=== PATIENT | male | born 1940 | race Caucasian/White ===

== ENCOUNTER → 2016-04-16 | Outpatient (CLI) | payer MEDICARE, OTHER ==
[~2016-04-16] MED LIST: ALBUTEROL 0.5ML INH; ALBUTEROL0.83 MG/ML INH; ALLERGY RELIEF10 M1 PO; AMLODIPINE BESYL5 MG PO; APRESOLINE PO; ASPIR-TRIN325 MG PO; ASPIRIN; ASPIRIN ENTERI325 M1 PO; ASPIRIN81 M2 PO; ATIVAN PO; ATIVAN0.5 M1 PO; AUGMENTIN PO; AVANDIA; BACTROBAN22 GM TOP; BAYER ASPIRIN325 M1 PO; CARVEDILOL25 MG PO; COATED ASPIRIN325 M1 PO; COREG; COREG PO; COREG12.5 MG PO; COZAAR; COZAAR100 MG PO; COZAAR25 MG PO; FUROSEMIDE40 MG PO; FUROSEMIDE80 MG PO; GLUCOPHAGE XR500 MG; HYDRALAZINE HCL25 MG PO; IMDUR-ER60 M1 PO; IMDUR-ER60 MG DOB; K-DUR20 ME2 PO; LANTUS100 U/ML; LANTUS100 U/ML SUBQ; LANTUS100 UNITS/ SUBQ; LASIX; LASIX PO; LASIX80 MG PO; LOSARTAN POTASS50 MG PO; METFORMIN HCL1000 M1 PO; METFORMIN PO; METOLAZONE2.5 MG PO; NITROSTAT0.4 MG SL; NORVASC10 MG PO; NOVOLOG100 U/M1 SUBQ; NOVOLOG100 U/ML SQ; NOVOLOG100 U/ML SUBQ; NOVOLOG100 UNITS/ SUBQ; PLAVIX; RANITIDINE HCL150 M1 PO; SIMVASTATIN20 MG PO; SYMBICORT INH; SYMBICORT80 INH; TUSSIONEX PENN473 ML PO; TUSSIONEX PENN480 ML PO; VITAMIN D PO; ZANTAC; ZANTAC150 M1 PO; ZAROXYLYN PO; ZITHROMAX PO; ZOCOR; ZOCOR PO
--- NOTE | ~2016-04-16 | US37 ---
[facility] A Service of [facility] & [facility] RADIOLOGY TEXT RESULTS PATIENT: CANDELARIO MORENO LOCATION: CNIV : 42 UNIT #: [id number] AGE: [address]: Magdiel Johnson MD SEX: M ORDER DR: [id number] [facility] [address] [place], [place] [address] [id number] O MR#: [id number] Acc #: [id number] NAME: CANDELARIO MORENO. : 1940 SEX: M STUDY DATE/TIME: 04/16/2016 12:20 UNIT: CNIV ROOM: STUDY DESCRIPTION: US Carotid W/Doppler Bilateral Attending Physician: Magdiel Johnson M.D. Referring Physician: Magdiel Johnson M.D. Ordering Physician: Magdiel Johnson M.D. Primary Care Physician: Lianna Griffith A.P.R.N. MEDICAL IMAGING REPORT This report is preliminary unless electronic signature is present EXAM Bilateral carotid duplex, 04/16/2016 HISTORY Hypertension, hyperlipidemia, diabetic FINDINGS There is patent flow seen throughout the right common carotid, internal carotid and external carotid arteries. There is some heterogeneous and echogenic plaque seen in the right carotid bifurcation, as well as external carotid artery. There is some mild plaque also noted in the right internal carotid artery. The right common carotid artery peak velocity is 81 cm/sec. The right internal carotid artery peak systolic over end-diastolic velocities are: proximal 140/44 cm/sec, mid 158/44 cm/sec, distal 118/23 cm/sec. The right external carotid artery has a peak velocity of 238 cm/sec, vertebral artery 31 cm/sec. The right ICA/CCA ratio is 1.9. There is patent flow seen throughout the left common carotid, internal carotid and external carotid arteries. There is diffuse, homogeneous plaque seen in the left common carotid artery. At the left carotid bifurcation there is irregular, and heterogeneous plaque that is seen, that extends into the external and internal carotid arteries. The left common carotid artery peak velocity is 64 cm/sec. The left internal carotid artery peak systolic over end-diastolic velocities are: proximal 69/16 cm/sec, mid 63/19 cm/sec, distal 48/13 cm/sec. The left external carotid artery peak velocity is 77 cm/sec, vertebral artery 27 cm/sec. The left ICA/CCA ratio is 1.0. IMPRESSION 1. There is moderate atherosclerosis of the right carotid artery, consistent with 50% to 69% stenosis by duplex criteria. [facility] A Service of [facility] RADIOLOGY TEXT RESULTS PATIENT: CANDELARIO MORENO LOCATION: CNIV : 42 UNIT #: [id number] AGE: [address]: Magdiel Johnson MD SEX: M ORDER DR: 2. Likely moderate to high grade stenosis of the right external carotid artery. 3. There is mild atherosclerosis of the left carotid artery, which is not hemodynamically significant by duplex criteria (less than 50%). 4. Vertebral flow is antegrade bilaterally. Dictated by... Mack Bocanegra M.D. THIS IS AN ELECTRONICALLY VERIFIED REPORT Mack Bocanegra M.D. at 04/20/2016 8:23 AM Darren TD: 04/17/2016 08:56 JOB #: [id number] MEDICAL IMAGING REPORT COPY
== END | disposition home or self-care (01) ==
LOC: CNIV 11:47
DX: R09.89 Other specified symptoms and signs involving the circulatory and respiratory systems (principal); I65.23 Occlusion and stenosis of bilateral carotid arteries
CPT/HCPCS: 93880

== ENCOUNTER → 2016-05-06 | Outpatient (CLI) | payer MEDICARE, OTHER ==
--- NOTE | ~2016-05-06 | CR63 ---
[facility] A Service of [facility] RADIOLOGY TEXT RESULTS PATIENT: CANDELARIO MORENO [facility] UN[facility] #: [id number] AGE: [address]: Lianna Griffith [employer] SEX: M ORDER DR: [id number] [address] [address] [id number] O MR#: [id number] Acc #: [id number] NAME: CANDELARIO MROENO : 1940 SEX: M STUDY DATE/TIME: 05/06/2016 9:55 UNIT: [facility] ROOM: STUDY DESCRIPTION: CR Chest 2 View Attending Physician: Lianna Griffith A.P.R.N. Ordering Physician: Lianna Griffith A.P.R.N. Primary Care Physician: Lianna Griffith A.P.R.N. MEDICAL IMAGING REPORT This report is preliminary unless electronic signature is present. EXAM Chest x-ray HISTORY Cough and congestion for the past 3 days. TECHNIQUE 2 views of the chest were obtained and compared with 01/19/2015. FINDINGS Cardiomegaly is unchanged. There is extensive consolidation and volume loss at both lung bases left worse than right. This has been present chronically. The upper lung valenzuela are clear. Vascular markings are normal. No new infiltrates are seen since the previous examination. IMPRESSION Chronic bibasilar infiltrates with volume loss, left greater than right, showing no change from previous examinations. No new infiltrates are seen. Stable cardiomegaly. Dictated by... Trevon Hall M.D. THIS IS AN ELECTRONICALLY VERIFIED REPORT Trevon Hall M.D. at 05/06/2016 3:44 PM RLF/giovanni TD: 05/06/2016 11:35 JOB #: [id number] MEDICAL IMAGING REPORT [facility] A Service of [facility] RADIOLOGY TEXT RESULTS PATIENT: CANDELARIO MORENO LOCATION: [facility] : 42 UNIT #: [id number] AGE: [address]: Lianna Griffith SEX: M ORDER DR: Page 1 of 1
== END | disposition home or self-care (01) ==
LOC: SRAD 09:47
DX: R05 Cough (principal); R91.8 Other nonspecific abnormal finding of lung field; I51.7 Cardiomegaly
CPT/HCPCS: 71020